=== PATIENT | female | born 1985 | race African-American/Black ===

== ENCOUNTER 2022-09-28 13:43 | Emergency (ER) | payer OTHER ==
[2022-09-28 14:00] VITALS: BMI 33.3
[2022-09-28] MEDS ORDERED: morphine CARPU-JECT 4 MG/1 ML DISP.SYRIN IVPUSH ONE (14:03)
[2022-09-28] MEDS ORDERED: ONDANSETRON 4 MG/2 ML VIAL IVPUSH ONE (14:03)
[2022-09-28 14:27] LABS: HCG,QUALITATIVE URINE Negative
[2022-09-28] MEDS ORDERED: ONDANSETRON 4 MG/2 ML VIAL ONE (14:39)
[2022-09-28] MEDS ORDERED: morphine SULFATE 4 MG/ML VIAL ONE (14:39)
[2022-09-28 14:41] LABS: EPITHELIAL CELLS FEW /hpf
[2022-09-28] MEDS ORDERED: CEFTRIAXONE 1,000 MG in DEXTROSE 5%-WATER - 50 ML IVPB ONE (15:11)
[2022-09-28 15:23] LABS: ALBUMIN 3.9 g/dl (3.4-5.0); BILIRUBIN,TOTAL 1.8 mg/dl (0.2-1); CALCIUM 8.8 mg/dl (8.5-10); CREATININE 1.4 mg/dl (0.55-1.3); TOT PROT 7.5 g/dl (6.4-8.2)
[2022-09-28] MEDS ORDERED: cefTRIAXone SODIUM 1 GM VIAL ONE (15:37)
[2022-09-28] MEDS ORDERED: POTASSIUM CHLORIDE ORAL LIQUID 20 MEQ/15 ML PO ONE (15:38)
[2022-09-28 15:51] LABS: MCH 31.9 pg (25.7-33.7); MCHC 35.3 g/dl (32.0-36.0); MEAN CELL VOLUME 90.5 fl (80-96); MEAN PLT VOLUME 7.7 fl (7.5-11.1); PLATELET COUNT 198 10^3/uL (134-434); RBC 3.75 M/mm3 (3.60-5.2); RDW 13.7 % (11.6-15.6)
[2022-09-28] MEDS ORDERED: POTASSIUM CHLORIDE TABS 20 MEQ TABLET.ER (FP) PO ONE (16:09)
[2022-09-28 16:40] VITALS: BP 149/103; PULSE 92; RESP 16; TEMP 100.3
[2022-09-28 16:46] LABS: ANISOCYTOSIS 1+; MACROCYTOSIS 0
== END 2022-09-28 16:40 | disposition home or self-care (01) ==
LOC: FER 13:43
PROC: 3E03329 Introduction of Other Anti-infective into Peripheral Vein, Percutaneous Approach (ICD-10-PCS; principal; 2022-09-28)
PROC: 3E033GC Introduction of Other Therapeutic Substance into Peripheral Vein, Percutaneous Approach (ICD-10-PCS; 2022-09-28)
PROC: 3E033GC Introduction of Other Therapeutic Substance into Peripheral Vein, Percutaneous Approach (ICD-10-PCS; 2022-09-28)
DX: N30.91 Cystitis, unspecified with hematuria (principal); R10.9 Unspecified abdominal pain; R11.0 Nausea
CPT/HCPCS: 36415; 74176-TC; 80053; 81003; 81015; 84703; 85027; 87086; 87186; 99284-25